=== PATIENT | male | born 1985 | race Caucasian/White ===

== ENCOUNTER 2019-10-17 08:25 | Observation (INO) | payer MEDICAID ==
[2019-10-17] MEDS ORDERED: HYDROMORPHONE HCL 2 MG/ML VIAL IVP ONE ×2 (08:51→13:33)
[2019-10-17 09:07] LABS: HEMATOCRIT 44.5 % (42.0-52.0); HEMOGLOBIN 14.6 gm/dl (14.0-18.0); MEAN CELL VOLUME 95.1 fl (81-97); MEAN CORPUSCULAR HEMOGLOBIN 31.2 pg (27-33); MEAN CORPUSCULAR HGB CONC 32.8 g/dl (32-36); MEAN PLATELET VOLUME 10.3 fl (7.4-10.4); PLATELET COUNT 355 K/uL (130-400); RED BLOOD COUNT 4.68 M/uL (4.40-5.70)
[2019-10-17 09:14] LABS: BLOOD UREA NITROGEN 7 mg/dL (6-20)
[2019-10-17 09:15] LABS: CREATININE 0.7 mg/dL (0.7-1.2); EST GLOMERULAR FILTRATION RATE > 60 mL/min
--- NOTE | 2019-10-17 09:15 | Emergency Department Record ---
History of Present Illness - General Chief complaint: Male Urogenital Problem Stated complaint: RIGHT TESTICLE SWELLING Time Seen by Provider: 10/17/19 08:39 Source: Patient Mode of Arrival: Ambulatory Limitations: No limitations - History of Present Illness Initial comments: pt has had 2 days of increasing pain and r testicle swelling. he states it fe alexis likeit is going to explode Complaint: Testicle pain, Testicle swelling Onset/Timin -: Days(s) Location: Right inguinal region, Right testicle Improves with: None Worsens with: None - Related Data Home Medications Medication Instructions Recorded Confirmed Last Taken Cephalexin 500 mg PO TID 10/17/19 10/17/19 Unknown Allergies Allergy/AdvReac Type Severity Reaction Status Date / Time No Known Drug Allergies Allergy Verified 10/17/19 08:35 Travel Screening - Travel/Exposure Within Last 30 Days Have you traveled within the last 30 days?: No Review of Systems Reviewed: No additional complaints except as noted below Constitutional: Reports: As per HPI. Denies: Chills, Fever, Malaise, Night sweats, Weakness, Weight change Eyes: Reports: As per HPI. Denies: Eye discharge, Eye pain, Photophobia, Vision change ENT: Reports: As per HPI. Denies: Congestion, Dental pain, Ear pain, Epistaxis, Hearing loss, Throat pain Respiratory: Reports: As per HPI. Denies: Cough, Dyspnea, Hemoptysis, Stridor, Wheezes Cardiovascular: Reports: As per HPI. Denies: Arrhythmia, Chest pain, Dyspnea on exertion, Edema, Murmurs, Orthopnea, Palpitations, Paroxysmal nocturnal dyspnea, Rheumatic Fever, Syncope Endocrine: Reports: As per HPI. Denies: Fatigue, Heat or cold intolerance, Polydipsia, Polyuria Gastrointestinal: Reports: As per HPI. Denies: Abdominal pain, Constipation, Diarrhea, Hematemesis, Hematochezia, Melena, Nausea, Vomiting Genitourinary: Reports: As per HPI, Testicular pain. Denies: Dysuria, Frequency, Hematuria, Incontinence, Retention, Testicular mass, Urgency Musculoskeletal: Reports: As per HPI. Denies: Arthralgia, Back pain, Gout, Joint swelling, Myalgia, Neck pain Skin: Reports: As per HPI. Denies: Bruising, Change in color, Change in hair/nails, Lesions, Pruritus, Rash Neurological: Reports: As per HPI. Denies: Abnormal gait, Confusion, Headache, Numbness, Paresthesias, Seizure, Tingling, Tremors, Vertigo, Weakness Psychiatric: Reports: As per HPI. Denies: Anxiety, Auditory hallucinations, Depression, Homicidal thoughts, Suicidal thoughts, Visual hallucinations Hematological/Lymphatic: Reports: As per HPI. Denies: Anemia, Blood Clots, Easy bleeding, Easy bruising, Swollen glands Past Medical History - SOCIAL HISTORY Smoking Status: Former smoker Alcohol Use: None Drug Use: None - RESPIRATORY Hx Respiratory Disorders: No - CARDIOVASCULAR Hx Cardio Disorders: No Comment:: varicose veins of legs. - NEURO Hx Neuro Disorders: No - GI Hx GI Disorders: No - Hx Genitourinary Disorders: No - ENDOCRINE Hx Endocrine Disorders: No - MUSCULOSKELETAL Hx Musculoskeletal Disorders: No - PSYCH Hx Psych Problems: No - HEMATOLOGY/ONCOLOGY Hx Hematology/Oncology Disorders: No Family Medical History Any Significant Family History?: Yes *Kidney Comment: mother- kidney stones Physical Exam - General General Appearance: Alert, Oriented x3, Cooperative, Mild distress - Head Head exam: Normal inspection - Eye Eye exam: Normal appearance, PERRL, EOMI Pupils: Normal accommodation - ENT ENT exam: Normal exam, Mucous membranes moist, Normal external ear exam, Normal orophraynx Ear exam: Normal external inspection. negative: External canal tenderness Nasal Exam: Normal inspection. negative: Discharge, Sinus tenderness Mouth exam: Normal external inspection, Tongue normal Teeth exam: Normal inspection. negative: Dental caries Throat exam: Normal inspection. negative: Tonsillar erythema, Tonsillar exudate - Neck Neck exam: Normal inspection, Full ROM. negative: Tenderness - Respiratory Respiratory exam: Normal lung sounds bilaterally. negative: Respiratory distress - Cardiovascular Cardiovascular Exam: Regular rate, Normal rhythm, Normal heart sounds - GI/Abdominal GI/Abdominal exam: Soft, Normal bowel sounds. negative: Tenderness - Rectal Rectal exam: Deferred - exam: Scrotal swelling, Testicular tenderness, Other (erythema) - Extremities Extremities exam: Normal inspection, Full ROM, Normal capillary refill. negative: Tenderness - Back Back exam: Reports: Normal inspection, Full ROM. Denies: Muscle spasm, Rash noted, Tenderness - Neurological Neurological exam: Alert, CN II-XII intact, Normal gait, Oriented X3 - Psychiatric Psychiatric exam: Normal affect, Normal mood - Skin Skin exam: Dry, Erythema, Intact, Normal color, Rash, Warm Distribution of rash: Genitals Description of rash: Tenderness Course Vital Signs 10/17/19 08:33 Temperature 98.1 F Pulse Rate 91 H Respiratory 20 Rate Blood Pressure 126/85 Pulse Ox 96 - Reevaluation(s) Reevaluation #1: 10/17/19 13:31 d/w dr reyes. Medical Decision Making - Lab Data Result diagrams: 10/17/19 09:00 10/17/19 09:00 Disposition Disposition: Admit Clinical Impression: Orchitis Hydrocele Qualifiers: Hydrocele type: infected Qualified Code(s): N43.1 - Infected hydrocele Disposition: Still a Patient at [facility] Decision to Admit: Admit from ER Decision to Admit Date: 10/17/19 Decision to Admit Time: 13:33 Forms: Patient Portal Access Quality - Blood Pressure Screening Does Patient Have Any of the Following: No Blood Pressure Classification: Pre-Hypertensive BP Reading Systolic Measurement: 126 Diastolic Measurement: 85 Screening for High Blood Pressure: < Pre-Hypertensive BP, F/U Documented > [[id number]]
[2019-10-17 09:17] LABS: GLUCOSE,RANDOM 132 mg/dL (74-109)
--- NOTE | 2019-10-17 11:39 | ULTRASOUND REPORT ---
EXAMINATION: Ultrasound of the Scrotum EXAM DATE: 10/17/2019 11:20 AM TECHNIQUE: Ultrasound of the scrotum and contents INDICATION: swelling and pain of r testicle COMPARISON: None FINDINGS: Testicles: The right testicle measures 3.9 x 3.3 x 2.9 cm in dimension. The left testicle measures 4.4 x 2.5 x 2.7 cm in dimension. The testicles have a normal homogeneous echogenicity. No mass is present. Epididymides: The epididymides are normal. Scrotum: There is a moderate right-sided hydrocele with internal septations. There is no sonographic evidence of a hernia. COMPLETE DUPLEX DOPPLER OF THE TESTICLES: There is normal and symmetric arterial and venous flow, and normal symmetric color flow in each testicle without evidence of torsion. IMPRESSION: 1. Both testicles appear homogeneous without evidence of an intratesticular mass. 2. Normal vascular flow in each testicle without evidence of torsion. 3. Moderate septated right-sided hydrocele. Dictated by: Zeke Lyle MD on 10/17/2019 11:30 AM. .
[2019-10-17] MEDS ORDERED: LEVOFLOXACIN/D5W 750 MG/150 ML BAG IVPB ONE (13:02)
[2019-10-17] MEDS ORDERED: ACETAMINOPHEN 500 MG TABLET PO PRN (17:18)
[2019-10-17] MEDS ORDERED: HYDROMORPHONE HCL 2 MG/ML VIAL IVP PRN (17:18)
[2019-10-17] MEDS ORDERED: ONDANSETRON HCL IV 4 MG/2 ML VIAL IVP PRN (17:18)
[2019-10-17] MEDS ORDERED: HYDROCODONE/APAP 5/325MG TABLET PO PRN ×2 (18:12)
[2019-10-17] MEDS ORDERED: VANCOMYCIN HCL 2,000 MG in 0.9 % SODIUM CHLORIDE 500ML 500 ML IVPB SCH (19:00)
--- NOTE | 2019-10-17 19:25 | History & Physical ---
History of Present Illness - Date of Service Date of Service for History & Physical: 10/17/19 - History of Present Illness Admitting Diagnosis: infected hydrocele, orchitis History of Present Illness: 34 yo male presents to [facility] with c/o right testicular pain and swelling x 1 week but the pain became intolerable. Additionally, pt has chronic wound left leg from venous stasis ulcers, currently on Keflex and topical he can not remember the name of. Pt denies any new sexual partners, no sexual activity in 1 yr, no known hx of STI. US shows hydrocele, no torsion, no mass Vitals and Labs as documented below Report that Claudia consulted and req inpt r/t leukocytosis with orchitis Admit for orchitis, left leg wound, leukocytosis, pain 10/17/19 10/17/19 08:33 09:02 Temperature 98.1 F Pulse Rate 91 H Respiratory 20 Rate Blood Pressure 126/85 Blood Pressure Sitting Position Pulse Ox 96 Pain Intensity 9 10/17/19 10/17/19 09:00 09:00 WBC 30.0 H* RBC 4.68 Hgb 14.6 Hct 44.5 MCV 95.1 MCH 31.2 MCHC 32.8 RDW 13.0 Plt Count 355 Absolute Neutrophils Not Reportable Sodium 136 Potassium 3.7 Chloride 99 Carbon Dioxide 25.0 Anion Gap 12.0 BUN 7 Creatinine 0.7 Estimated GFR > 60 Random Glucose 132 H Calcium 9.3 10/17/19 Pt resting in bed, mother, young children present in room with pt. Left leg has noted edema, lower leg discoloration, sores in different levels of healing. Pt reports chronic wound x 1 yr, was told it is venous stasis ulcers, taking Keflex outpt. Family stepped out of room, Savanah CASANOVA cotton picker, scrotum assessed, right side testicle appears to be approx 4x size of left, is firm, warm to touch, erythema, and TTP. Lungs CTA, heart RRR. POC continue levaqun 750mg daily PO and add vanco pharmacy to dose for left leg chronic wound and leukocytosis. Repeat labs in the AM, d/c when WBC has normalized. [place] for [place]ana. PCP [facility] Travel Screening - Travel/Exposure Within Last 30 Days Have you traveled within the last 30 days?: No - Travel/Exposure Within Last Year Have you traveled outside the [place] in the last year?: No - Additonal Travel Details Have you been exposed to anyone with a communicable illness?: No - Travel Symptoms Symptom Screening: None Review of Systems Constitutional: Reports: As per HPI. Denies: Chills, Fever, Malaise, Night sweats, Weakness, Weight change Eyes: Reports: As per HPI. Denies: Eye discharge, Eye pain, Photophobia, Vision change ENT: Reports: As per HPI. Denies: Congestion, Dental pain, Ear pain, Epistaxis, Hearing loss, Throat pain Respiratory: Reports: As per HPI. Denies: Cough, Dyspnea, Hemoptysis, Stridor, Wheezes Cardiovascular: Reports: As per HPI. Denies: Arrhythmia, Chest pain, Dyspnea on exertion, Edema, Murmurs, Orthopnea, Palpitations, Paroxysmal nocturnal dyspnea, Rheumatic Fever, Syncope Endocrine: Reports: As per HPI. Denies: Fatigue, Heat or cold intolerance, Polydipsia, Polyuria Gastrointestinal: Reports: As per HPI. Denies: Abdominal pain, Constipation, Diarrhea, Hematemesis, Hematochezia, Melena, Nausea, Vomiting Genitourinary: Reports: As per HPI, Testicular pain. Denies: Dysuria, Frequency, Hematuria, Incontinence, Retention, Testicular mass, Urgency Musculoskeletal: Reports: As per HPI. Denies: Arthralgia, Back pain, Gout, Joint swelling, Myalgia, Neck pain Skin: Reports: As per HPI. Denies: Bruising, Change in color, Change in hair/nails, Lesions, Pruritus, Rash Neurological: Reports: As per HPI. Denies: Abnormal gait, Confusion, Headache, Numbness, Paresthesias, Seizure, Tingling, Tremors, Vertigo, Weakness Psychiatric: Reports: As per HPI. Denies: Anxiety, Auditory hallucinations, Depression, Homicidal thoughts, Suicidal thoughts, Visual hallucinations Hematological/Lymphatic: Reports: As per HPI. Denies: Anemia, Blood Clots, Easy bleeding, Easy bruising, Swollen glands Past Medical History - SOCIAL HISTORY Smoking Status: Former smoker Alcohol Use: Occasional Drug Use: Occasional - RESPIRATORY Hx Respiratory Disorders: No - CARDIOVASCULAR Hx Cardio Disorders: No Comment:: varicose veins of legs. - NEURO Hx Neuro Disorders: No - GI Hx GI Disorders: No - Hx Genitourinary Disorders: No - ENDOCRINE Hx Endocrine Disorders: No - MUSCULOSKELETAL Hx Musculoskeletal Disorders: No - PSYCH Hx Psych Problems: No - HEMATOLOGY/ONCOLOGY Hx Hematology/Oncology Disorders: No Family Medical History Any Significant Family History?: Yes *Kidney Comment: mother- kidney stones H&P Meds/Allergies - Allergies Allergies: Allergies Allergy/AdvReac Type Severity Reaction Status Date / Time No Known Drug Allergies Allergy Verified 10/17/19 08:35 - Home Medications Home Medications Medication Instructions Recorded Confirmed Last Taken Cephalexin 500 mg PO TID 10/17/19 10/17/19 Unknown - Active Medications Active Medications: Current Medications Acetaminophen (Tylenol 500mg Tab) 1,000 mg PO Q6H PRN PRN Reason: PAIN - MILD(1-4)/FEVER Hydrocodone Bitart/Acetaminophen ([place] 5mg/325mg) 1 each PO Q6H PRN PRN Reason: PAIN - MODERATE (5-7) Hydrocodone Bitart/Acetaminophen ([place] 5mg/325mg) 2 each PO Q6H PRN PRN Reason: PAIN - SEVERE (8-10) Last Admin: 10/17/19 19:09 Dose: 2 each Documented by: Vancomycin HCl 2,000 mg/ (Sodium Chloride) 500 mls @ 200 mls/hr IVPB DAILY [place] Stop: 10/22/19 19:01 Levofloxacin (Levaquin Tab) 750 mg PO DAILY [facility] Ondansetron HCl (Zofran) 4 mg IVP Q8H PRN PRN Reason: NAUSEA Physical Exam - Vital Signs Vital Signs: Vital Signs - Last 24 Hrs Temp Pulse Pulse Resp BP BP Pulse Ox 10/17/19 17:37 77 18 10/17/19 16:53 77 18 124/69 99 10/17/19 15:01 98.6 F 79 18 146/67 96 10/17/19 13:12 86 18 133/75 98 10/17/19 10:15 76 18 114/66 99 10/17/19 08:33 98.1 F 91 H 20 126/85 96 - General General Appearance: Alert, Oriented x3, Cooperative, No acute distress Limitations: No limitations - Head Head exam: Normal inspection - Eye Eye exam: Normal appearance, PERRL, EOMI Pupils: Normal accommodation - ENT ENT exam: Normal exam, Mucous membranes moist, Normal external ear exam, Normal orophraynx Ear exam: Normal external inspection. negative: External canal tenderness Nasal Exam: Normal inspection. negative: Discharge, Sinus tenderness Mouth exam: Normal external inspection, Tongue normal Teeth exam: Normal inspection. negative: Dental caries Throat exam: Normal inspection. negative: Tonsillar erythema, Tonsillar exudate - Neck Neck exam: Normal inspection, Full ROM. negative: Tenderness - Respiratory Respiratory exam: Normal lung sounds bilaterally. negative: Respiratory distress - Cardiovascular Cardiovascular Exam: Regular rate, Normal rhythm, Normal heart sounds - GI/Abdominal GI/Abdominal exam: Soft, Normal bowel sounds. negative: Tenderness - Rectal Rectal exam: Deferred - exam: Scrotal swelling, Testicular tenderness, Other (erythema) - Extremities Extremities exam: Normal inspection, Full ROM, Normal capillary refill. negative: Tenderness - Back Back exam: Reports: Normal inspection, Full ROM. Denies: Muscle spasm, Rash noted, Tenderness - Neurological Neurological exam: Alert, CN II-XII intact, Normal gait, Oriented X3 - Psychiatric Psychiatric exam: Normal affect, Normal mood - Skin Skin exam: Dry, Erythema, Intact, Normal color, Rash, Warm Distribution of rash: Genitals Description of rash: Tenderness Results - Labs Result Diagrams: 10/17/19 09:00 10/17/19 09:00 Labs Last 24 Hours: Laboratory Results - last 24 hr 10/17/19 10/17/19 09:00 09:00 WBC 30.0 H* RBC 4.68 Hgb 14.6 Hct 44.5 MCV 95.1 MCH 31.2 MCHC 32.8 RDW 13.0 Plt Count 355 MPV 10.3 Neutrophils % 89.0 H Band Neutrophils % 1.0 Eosinophils % Not Reportable Basophils % Not Reportable Absolute Neutrophils Not Reportable Lymphocytes 3.0 L Monocytes 7.0 Sodium 136 Potassium 3.7 Chloride 99 Carbon Dioxide 25.0 Anion Gap 12.0 BUN 7 Creatinine 0.7 Estimated GFR > 60 Random Glucose 132 H Calcium 9.3 VTE H&P Assessment - Risk for VTE Risk for VTE: Yes Risk Level: Moderate Risk Assessment Date: 10/17/19 Risk Assessment Time: 22:18 VTE Orders Placed or Will Be Placed: Yes Plan - Inpatient Certification Inpatient Certification: Admit to inpatient care: Based on my medical assessment, after consideration of patient's risk factors (age, co-morbidities and patient presenting symptoms and acuity), I expect that this patient will remain in the hospital greater than or equal to two midnights and that the services needed warrant inpatient care because: Patient Risk Factors: sepsis, testicular atrophy Estimated length of stay: [] The patient may reasonably be expected to be discharged or transferred to a hospital within 96 hours after admission to [facility]. Services needed: IV abx, repeat labs, pain control Post hospital care (if known): [] I certify that my determination is in accordance with my understanding of Medicare requirements for reasonable and necessary inpatient services. 10/17/19 22:18 - Detailed Diagnosis and Plan (1) Orchitis Current Visit: Yes Status: Acute Base Code: N45.2 - ORCHITIS Comment: 10/17/19 -Levaquin 750mg PO to continue for orchitis -norco 5/325 1-2 tabs PRN pain (2) Leukocytosis Current Visit: Yes Status: Acute Base Code: D72.829 - ELEVATED WHITE BLOOD CELL COUNT, UNSPECIFIED Comment: 10/17/19 -WBC 30 -known chronic infection left leg, new onset right orchitis -admit ABX, pain control, repeat labs in the am -procalcitonin ordered on previous lab draw (3) Chronic wound of extremity Current Visit: Yes Status: Acute Base Code: KXT1606 - Comment: 10/17/19 -pt has chronic left leg wound, appears to have venous stais skin changes, lymphedema -added vanco r/t chronic issues and elevated WBC (4) Hydrocele Current Visit: Yes Status: Acute Qualifiers: Hydrocele type: infected Qualified Code(s): N43.1 - Infected hydrocele Base Code: N43.3 - HYDROCELE, UNSPECIFIED Comment: 10/17/19 -US shows mod right sided hydrocele (5) DVT prophylaxis Current Visit: Yes Status: Acute Base Code: Z29.9 - ENCOUNTER FOR PROPHYLACTIC MEASURES, UNSPECIFIED Comment: 10/17/19 -mod risk DVT r/t pt wgt, imoblilty and current medical condition -lovenox 40mg SQ (6) Full code status Current Visit: Yes Status: Acute Base Code: Z78.9 - OTHER SPECIFIED HEALTH STATUS Comment: 10/17/19 -full code status
[2019-10-17] MEDS ORDERED: KETOROLAC 30 MG/ML VIAL IVP PRN (22:25)
[2019-10-18 07:27] LABS: ABSOLUTE NEUTROPHIL COUNT 17.45; HEMATOCRIT 43.4 % (42.0-52.0); HEMOGLOBIN 14.2 gm/dl (14.0-18.0); MEAN CELL VOLUME 95.8 fl (81-97); MEAN CORPUSCULAR HEMOGLOBIN 31.3 pg (27-33); MEAN CORPUSCULAR HGB CONC 32.7 g/dl (32-36); MEAN PLATELET VOLUME 10.2 fl (7.4-10.4); PLATELET COUNT 323 K/uL (130-400); RED BLOOD COUNT 4.53 M/uL (4.40-5.70); RED CELL DISTRIBUTION WIDTH 13.2 % (11.5-14.5)
[2019-10-18 07:39] LABS: WHITE BLOOD COUNT W/O DIFF 21.4 K/uL (4.2-12.2)
[2019-10-18 07:58] LABS: PLATELET ESTIMATE NORMAL (NORMAL); TOXIC GRANULATION 1+
[2019-10-18] MEDS ORDERED: VANCOMYCIN 1.5GM/300ML PREMIX 1.5 GM/300 ML PIGGYBACK IVPB SCH (08:30)
[2019-10-18] MEDS ORDERED: VANCOMYCIN 1GM/200ML PREMIX 1 GM/200 ML PIGGYBACK IVPB SCH (10:00)
[2019-10-18] MEDS ORDERED: LEVOFLOXACIN 500 MG TABLET PO SCH (10:00)
--- NOTE | 2019-10-18 12:32 | Discharge Note ---
VTE H&P Assessment - Risk for VTE Risk for VTE: Yes Risk Level: Moderate Risk Assessment Date: 10/17/19 Risk Assessment Time: 22:18 VTE Orders Placed or Will Be Placed: Yes Discharge Medications - Discharge Medications Prescriptions: Sulfamethoxazole/Trimethoprim [Bactrim Ds Tablet] 1 each PO BID #20 tablet Levofloxacin [Levaquin] 500 mg PO DAILY #10 tablet Ibuprofen [Motrin 600Mg] 600 mg PO Q8H #20 tablet Home Medications: Ambulatory Orders Acetaminophen [Tylenol 500Mg Tab] 1,000 mg PO Q6H PRN tablet 10/18/19 [Last Sundar en Unknown] Ibuprofen [Motrin 600Mg] 600 mg PO Q8H #20 tablet 10/18/19 [Last Taken Unknown] Levofloxacin [Levaquin] 500 mg PO DAILY #10 tablet 10/18/19 [Last Taken Unknown] Sulfamethoxazole/Trimethoprim [Bactrim Ds Tablet] 1 each PO BID #20 tablet 10/18/19 [Last Taken Unknown] Discharge Note - Date Date of Discharge Note: 10/18/19 Disposition: Home, Self-Care Condition: (1) Good Additional Instructions: Please call Dr. Stephen's office and ask for Evelyn once you are discharged [phone] Appointment with Mariaelena Dhaliwal at [facility] in [place] on Sunday 10/21 at 9:20AM for hospital follow up elevate leg motrin 600 mg three times a day if painful bactrim ds twice a day for 10 days for the cellulitis of the leg levaquin 500 mg daily for 10 days Forms: Patient Portal Access Diet at Discharge: Low Salt Diet
[2019-10-18] MEDS ORDERED: ENOXAPARIN 40 MG/0.4 ML SYR SQ ONE (12:45)
--- NOTE | 2019-10-19 08:32 | Discharge Summary ---
DATE: 10/18/2019 DISCHARGE DIAGNOSES: 1. Epididymitis of the right scrotum. 2. Hydrocele, possibly infected. 3. Peripheral vascular disease of the left leg, venous. 4. Possible cellulitis of the left leg, mild. ATTENDING PHYSICIAN: Corky Tillman DO REASON FOR HOSPITALIZATION: This 34-year-old male presented to the emergency department and was seen by Dr. Marks for 2 days of increasing pain on the right testicle and swelling. He states that it feels like it is going to explode. He has an incidental finding of the left lower leg. It is discolored from 5 years of peripheral vascular disease, hyperpigmented, slightly red around the edges, some scabs, and the skin is dry. He said that was not bothering him at all. He said it is the way it has been for 5 years. The patient was admitted for IV antibiotics for his infected scrotum and cellulitis of his left lower leg. He was given 1 dose of vancomycin and 1 dose of Levaquin. He is much better today. He was also given some IV Toradol, which relieved his pain tremendously. At this point, he wants to go home and I feel it is safe to go home with oral antibiotics. We placed him on Levaquin 500 mg once a day for 10 days and Bactrim double strength b.i.d. for 10 days. He is to drink lots of fluids, elevate his leg, follow up with Dr. Stephen, his primary, in 2 days on Thursday. HOSPITAL COURSE: Much improved. CONDITION ON DISCHARGE: Much improved. DISCHARGE INSTRUCTIONS: Follow up with Dr. Stephen as scheduled on Thursday, in 3 days. Bactrim double strength b.i.d. for 10 days. Levaquin 500 mg daily for 10 days. Motrin 600 mg t.i.d. p.r.n. pain. Tylenol p.r.n. pain. MTDD
== END 2019-10-18 14:05 | disposition home or self-care (01) ==
LOC: ER 08:25 → MEDSURG 16:38 → INTOOBSV 16:38
PROVIDERS: ADMIT Internal Medicine; ATTEND Emergency Medicine
DX: N43.1 Infected hydrocele (principal); N45.2 Orchitis; L97.829 Non-pressure chronic ulcer of other part of left lower leg with unspecified severity; Z86.14 Personal history of Methicillin resistant Staphylococcus aureus infection; I83.028 Varicose veins of left lower extremity with ulcer other part of lower leg; D72.829 Elevated white blood cell count, unspecified; Z87.891 Personal history of nicotine dependence; I83.90 Asymptomatic varicose veins of unspecified lower extremity; I73.9 Peripheral vascular disease, unspecified; L03.116 Cellulitis of left lower limb
CPT/HCPCS: 80048; 84145; 85027 ×2; 76870; G0378 ×2; J1885; J3370 ×2; J1956; J1170; 96365; 96366; 96374; 96376; 99217; 99220; 99285; J1650; J7040